=== PATIENT | male | born 1960 | race African-American/Black ===

== ENCOUNTER 2018-07-12 18:36 | Inpatient (IN) | payer SELFPAY ==
[~2018-07-12] VITALS: Ht 172.7 cm; Wt 87.1 kg
[~2018-07-12 18:36] MED LIST: ASPI-1159 PO; ATOR40TA70 PO; CLOP75TA33 PO; FAMO40TA7 PO; FURO40TA5 PO; LISI10TA5 PO; METF-414 PO; METO-539 PO
[2018-07-12] MEDS ORDERED: FUROSEMIDE 40MG/4ML VIAL IV ONE (21:00)
[2018-07-12] MEDS ORDERED: ASPIRIN 81MG TABLET PO ONE (21:00)
[2018-07-12 21:06] LABS: BASOPHILS % 0.4 % (0.0-2.0); EOSINOPHILS % 1.1 % (0.0-5.0); HEMATOCRIT. 40.7 % (42.0-52.0); HEMOGLOBIN. 13.5 g/dL (14.0-18.0); LYMPHOCYTES % 10.5 % (20.0-50.0); MEAN CORPUSCULAR HEMOGLOBIN 27.8 pg (28.0-32.0); MEAN CORPUSCULAR VOLUME 83.8 fL (80.0-94.0); MEAN PLATELET VOLUME 10.2 fl (7.4-10.4); MONOCYTES % 7.3 % (2.0-8.0); NEUTROPHILS % 80.7 % (40.0-76.0); PLATELET 189 x1000/uL (130-400); RED BLOOD CELL COUNT 4.85 mill/uL (4.7-6.1); RED CELL DISTRIBUTION WIDTH 15.8 % (11.6-14.6)
[2018-07-12 21:10] LABS: INR 1.3; PARTIAL THROMBOPLASTIN TIME 30.1 sec (23.4-31.0)
[2018-07-12 21:11] LABS: CHLORIDE 101 mEq/L (98-107); ETHANOL BLOOD < 10 mg/dL
[2018-07-12 23:15] LABS: *AMPHETAMINES SCREEN URINE NEGATIVE (NEGATIVE); *BARBITURATES SCREEN URINE NEGATIVE (NEGATIVE); *BENZODIAZEPINES SCREEN URINE NEGATIVE (NEGATIVE); *COCAINE SCREEN URINE NEGATIVE (NEGATIVE); CANNABINOID URINE SCREEN NEGATIVE (NEGATIVE); METHADONE URINE SCREEN NEGATIVE (NEGATIVE); OPIATES URINE SCREEN NEGATIVE (NEGATIVE); PHENCYCLIDINE URINE SCREEN NEGATIVE (NEGATIVE)
[2018-07-13 00:35] VITALS: BP 155/111
[2018-07-13] MEDS ORDERED: DEXTROSE 50% WATER 50ML SYRINGE IV PRN (01:45)
[2018-07-13 04:22] VITALS: BP 167/106
[2018-07-13] MEDS: BLOOD SUGAR DIAGNOSTIC STRIP TEST SCH ×4 (07:20→20:51)
[2018-07-13] MEDS: INSULIN LISPRO 100 UNITS/ML SUBCUT SCH ×4 (07:50→21:00)
[2018-07-13] MEDS ORDERED: CLONIDINE 0.1MG TABLET PO PRN (08:00)
[2018-07-13] MEDS ORDERED: FUROSEMIDE 100MG/10ML VIAL IVP SCH (08:20)
[2018-07-13] MEDS: METFORMIN HCL 500MG TABLET PO SCH (08:28)
[2018-07-13] MEDS: AMLODIPINE 5MG TABLET PO SCH ×2 (08:29→20:49)
[2018-07-13] MEDS: FAMOTIDINE 20MG TABLET PO SCH ×2 (08:32→20:46)
[2018-07-13 08:49] VITALS: BP 138/98
[2018-07-13] MEDS ORDERED: METOPROLOL TARTRATE 50MG TABLET PO SCH (09:00)
[2018-07-13] MEDS ORDERED: FUROSEMIDE 20MG/2ML VIAL IVP SCH (09:00)
[2018-07-13] MEDS ORDERED: ASPIRIN 81MG TABLET PO SCH (09:00)
[2018-07-13] MEDS ORDERED: CLOPIDOGREL 75MG TABLET PO SCH (09:00)
[2018-07-13] MEDS: CARVEDILOL 12.5MG TABLET PO SCH ×2 (09:08→20:50)
[2018-07-13] MEDS ORDERED: INFLUENZA VIRUS VACCINE(AFLURIA) 0.5ML SYR IM ONE (10:00)
[2018-07-13 10:20] LABS: HEMATOCRIT 41.3 % (42.0-52.0); HEMOGLOBIN 13.8 g/dL (14.0-18.0); MEAN CORPUSCULAR VOLUME 84.1 fL (80.0-94.0); PLATELET 177 x1000/uL (130-400); RED BLOOD CELL COUNT 4.92 mill/uL (4.7-6.1); RED CELL DISTRIBUTION WIDTH 15.7 % (11.6-14.6)
[2018-07-13 10:46] LABS: CHLORIDE 101 mEq/L (98-107)
[2018-07-13] MEDS: TAMSULOSIN HCL 0.4MG SR CAPSULE PO SCH (11:30)
[2018-07-13 12:00] VITALS: BP 108/75
[2018-07-13] MEDS: LISINOPRIL 20MG TABLET PO SCH ×2 (12:00→20:49)
[2018-07-13] MEDS ORDERED: LORAZEPAM 2MG/ML CPJ IV PRN (15:00)
[2018-07-13] MEDS: THIAMINE HCL 100MG TABLET PO SCH (15:00)
[2018-07-13] MEDS ORDERED: IPRATROPIUM/ALBUTEROL 0.5-3(2.5)MG/3ML NEB HHN PRN (15:00)
[2018-07-13] MEDS ORDERED: GUAIFENESIN/CODEINE 200-20MG/10ML UDC PO PRN (15:00)
[2018-07-13 16:29] VITALS: BP 101/68
[2018-07-13] MEDS: MULTIVITAMINS,THER W-MINERALS TABLET PO SCH (17:03)
[2018-07-13] MEDS: FOLIC ACID 1MG TABLET PO SCH (17:03)
[2018-07-13] MEDS: FUROSEMIDE 40MG/4ML VIAL IVP SCH (17:03)
[2018-07-13] MEDS: ENOXAPARIN 40MG/0.4ML SYR SUBCUT SCH (17:05)
[2018-07-13 20:00] VITALS: BP 123/84
[2018-07-13] MEDS: ATORVASTATIN CALCIUM 40MG TABLET PO SCH (20:46)
[2018-07-13] MEDS ORDERED: HYDROCODONE/ACETAMINOPHEN 5/325MG TABLET PO PRN (21:45)
[2018-07-14] VITALS: BP 101/59
[2018-07-14 04:00] VITALS: BP 112/64
[2018-07-14] MEDS: FUROSEMIDE 40MG/4ML VIAL IVP SCH ×2 (06:16→18:24)
[2018-07-14] MEDS: BLOOD SUGAR DIAGNOSTIC STRIP TEST SCH ×4 (06:23→21:00)
[2018-07-14] MEDS: INSULIN LISPRO 100 UNITS/ML SUBCUT SCH ×4 (07:18→22:24)
[2018-07-14 07:34] LABS: BASOPHILS % 0.3 % (0.0-2.0); EOSINOPHILS % 2.5 % (0.0-5.0); HEMATOCRIT. 38.7 % (42.0-52.0); LYMPHOCYTES % 11.9 % (20.0-50.0); MEAN CORPUSCULAR HEMOGLOBIN 28.1 pg (28.0-32.0); MEAN CORPUSCULAR VOLUME 83.5 fL (80.0-94.0); MEAN PLATELET VOLUME 9.8 fl (7.4-10.4); NEUTROPHILS % 77.3 % (40.0-76.0); PLATELET 169 x1000/uL (130-400); RED BLOOD CELL COUNT 4.64 mill/uL (4.7-6.1); RED CELL DISTRIBUTION WIDTH 15.7 % (11.6-14.6)
[2018-07-14 08:00] VITALS: BP 127/76
[2018-07-14 08:05] LABS: CHLORIDE 102 mEq/L (98-107)
[2018-07-14 08:17] LABS: HDL CHOLESTEROL 25 mg/dL (40-59); LDL CHOLESTEROL 44 mg/dL (5-100)
[2018-07-14] MEDS: THIAMINE HCL 100MG TABLET PO SCH (08:40)
[2018-07-14] MEDS: CARVEDILOL 12.5MG TABLET PO SCH ×2 (08:41→22:25)
[2018-07-14] MEDS: TAMSULOSIN HCL 0.4MG SR CAPSULE PO SCH (08:41)
[2018-07-14] MEDS: LISINOPRIL 20MG TABLET PO SCH ×2 (08:42→22:25)
[2018-07-14] MEDS: MULTIVITAMINS,THER W-MINERALS TABLET PO SCH (08:42)
[2018-07-14] MEDS: FOLIC ACID 1MG TABLET PO SCH (08:42)
[2018-07-14] MEDS: METFORMIN HCL 500MG TABLET PO SCH (08:42)
[2018-07-14] MEDS: AMLODIPINE 5MG TABLET PO SCH ×2 (08:42→22:25)
[2018-07-14] MEDS: FAMOTIDINE 20MG TABLET PO SCH ×2 (08:55→22:24)
[2018-07-14 12:00] VITALS: BP 114/63
[2018-07-14] MEDS ORDERED: FUROSEMIDE 40MG/4ML VIAL IVP NR (14:49)
[2018-07-14] MEDS ORDERED: POTASSIUM CHLORIDE 20MEQ/PACKET PO NR (14:50)
[2018-07-14 16:00] VITALS: BP 122/78
[2018-07-14] MEDS ORDERED: MAGNESIUM SULFATE 2 GM in DEXTROSE 5% WATER 50 ML IV NR (17:00)
[2018-07-14] MEDS: POTASSIUM CHLORIDE 20MEQ TABLET SR PO SCH (18:24)
[2018-07-14] MEDS: ENOXAPARIN 40MG/0.4ML SYR SUBCUT SCH (18:25)
[2018-07-14 20:00] VITALS: BP 119/90
[2018-07-14] MEDS: ATORVASTATIN CALCIUM 40MG TABLET PO SCH (22:24)
[2018-07-15] VITALS: BP 123/76
[2018-07-15 04:00] VITALS: BP 105/61
[2018-07-15 06:54] LABS: BASOPHILS % 0.7 % (0.0-2.0); EOSINOPHILS % 2.5 % (0.0-5.0); HEMATOCRIT. 40.3 % (42.0-52.0); HEMOGLOBIN. 13.4 g/dL (14.0-18.0); LYMPHOCYTES % 15.8 % (20.0-50.0); MEAN CORPUSCULAR HEMOGLOBIN 27.7 pg (28.0-32.0); MEAN CORPUSCULAR VOLUME 83.4 fL (80.0-94.0); MEAN PLATELET VOLUME 10.1 fl (7.4-10.4); MONOCYTES % 8.5 % (2.0-8.0); NEUTROPHILS % 72.5 % (40.0-76.0); PLATELET 184 x1000/uL (130-400); RED BLOOD CELL COUNT 4.83 mill/uL (4.7-6.1); RED CELL DISTRIBUTION WIDTH 15.8 % (11.6-14.6)
[2018-07-15] MEDS: BLOOD SUGAR DIAGNOSTIC STRIP TEST SCH ×4 (07:16→21:25)
[2018-07-15] MEDS: INSULIN LISPRO 100 UNITS/ML SUBCUT SCH ×4 (07:50→21:25)
[2018-07-15 07:53] LABS: CHLORIDE 100 mEq/L (98-107)
[2018-07-15 08:00] VITALS: BP 126/80
[2018-07-15] MEDS: POTASSIUM CHLORIDE 20MEQ TABLET SR PO SCH ×2 (09:22→17:59)
[2018-07-15] MEDS: TAMSULOSIN HCL 0.4MG SR CAPSULE PO SCH (09:22)
[2018-07-15] MEDS: FAMOTIDINE 20MG TABLET PO SCH ×2 (09:22→21:22)
[2018-07-15] MEDS: AMLODIPINE 5MG TABLET PO SCH ×2 (09:22→21:00)
[2018-07-15] MEDS: METFORMIN HCL 500MG TABLET PO SCH (09:22)
[2018-07-15] MEDS: MULTIVITAMINS,THER W-MINERALS TABLET PO SCH (09:22)
[2018-07-15] MEDS: FOLIC ACID 1MG TABLET PO SCH (09:23)
[2018-07-15] MEDS: LISINOPRIL 20MG TABLET PO SCH ×2 (09:23→21:00)
[2018-07-15] MEDS: FUROSEMIDE 40MG/4ML VIAL IVP SCH ×2 (09:23→17:59)
[2018-07-15] MEDS: THIAMINE HCL 100MG TABLET PO SCH (09:23)
[2018-07-15 12:00] VITALS: BP 128/91
[2018-07-15 16:00] VITALS: BP 146/82
[2018-07-15] MEDS: ENOXAPARIN 40MG/0.4ML SYR SUBCUT SCH (16:15)
[2018-07-15] MEDS: CARVEDILOL 12.5MG TABLET PO SCH ×2 (17:59→21:00)
[2018-07-15 20:00] VITALS: BP 103/61
[2018-07-15] MEDS: ATORVASTATIN CALCIUM 40MG TABLET PO SCH (21:22)
[2018-07-16] VITALS: BP 110/63
[2018-07-16 04:00] VITALS: BP 105/77
[2018-07-16] MEDS: BLOOD SUGAR DIAGNOSTIC STRIP TEST SCH (06:25)
[2018-07-16 06:36] LABS: BASOPHILS % 0.8 % (0.0-2.0); EOSINOPHILS % 3.5 % (0.0-5.0); HEMATOCRIT. 41.5 % (42.0-52.0); HEMOGLOBIN. 13.6 g/dL (14.0-18.0); MEAN CORPUSCULAR HEMOGLOBIN 27.6 pg (28.0-32.0); MEAN CORPUSCULAR VOLUME 83.9 fL (80.0-94.0); MEAN PLATELET VOLUME 10.1 fl (7.4-10.4); MONOCYTES % 8.9 % (2.0-8.0); NEUTROPHILS % 70.8 % (40.0-76.0); PLATELET 188 x1000/uL (130-400); RED BLOOD CELL COUNT 4.95 mill/uL (4.7-6.1); RED CELL DISTRIBUTION WIDTH 15.4 % (11.6-14.6)
[2018-07-16 07:06] LABS: CHLORIDE 102 mEq/L (98-107)
[2018-07-16] MEDS ORDERED: SODIUM BICARBONATE 4% (2.4MEQ) 5ML VIAL IV ONE (08:06)
[2018-07-16] MEDS: METFORMIN HCL 500MG TABLET PO SCH (10:20)
[2018-07-16] MEDS: FAMOTIDINE 20MG TABLET PO SCH (10:20)
[2018-07-16] MEDS: CARVEDILOL 12.5MG TABLET PO SCH (10:21)
[2018-07-16] MEDS: TAMSULOSIN HCL 0.4MG SR CAPSULE PO SCH (10:21)
[2018-07-16] MEDS: THIAMINE HCL 100MG TABLET PO SCH (10:21)
[2018-07-16] MEDS: AMLODIPINE 5MG TABLET PO SCH (10:21)
[2018-07-16] MEDS: MULTIVITAMINS,THER W-MINERALS TABLET PO SCH (10:21)
[2018-07-16] MEDS: POTASSIUM CHLORIDE 20MEQ TABLET SR PO SCH (10:21)
[2018-07-16] MEDS: FOLIC ACID 1MG TABLET PO SCH (10:21)
[2018-07-16] MEDS: FUROSEMIDE 40MG/4ML VIAL IVP SCH (10:22)
[2018-07-16] MEDS: LISINOPRIL 20MG TABLET PO SCH (10:22)
[2018-07-16 11:14] VITALS: BP 146/80
== END 2018-07-16 12:09 | disposition home or self-care (01) | DRG 133 ==
LOC: ER 18:36 → 6WST 21:54 → EDBEDREQ 21:56 → EDBEDREQTM 21:56 → EDBEDREQSVC 22:53 → ENRESERV 22:58
PROVIDERS: ADMIT Internal Medicine; ATTEND Internal Medicine
PROC: 0W993ZZ Drainage of Right Pleural Cavity, Percutaneous Approach (ICD-10-PCS; principal; 2018-07-16)
DX: J96.00 Acute respiratory failure, unspecified whether with hypoxia or hypercapnia (principal); I50.43 Acute on chronic combined systolic (congestive) and diastolic (congestive) heart failure; I27.20 Pulmonary hypertension, unspecified; E87.8 Other disorders of electrolyte and fluid balance, not elsewhere classified; E44.1 Mild protein-calorie malnutrition; I31.3 Pericardial effusion (noninflammatory); I11.0 Hypertensive heart disease with heart failure; B35.1 Tinea unguium; I42.9 Cardiomyopathy, unspecified; D64.9 Anemia, unspecified; E78.00 Pure hypercholesterolemia, unspecified; E11.9 Type 2 diabetes mellitus without complications; E78.5 Hyperlipidemia, unspecified; E87.6 Hypokalemia; F10.10 Alcohol abuse, uncomplicated; I25.10 Atherosclerotic heart disease of native coronary artery without angina pectoris; N40.0 Benign prostatic hyperplasia without lower urinary tract symptoms; R18.8 Other ascites; Z79.02 Long term (current) use of antithrombotics/antiplatelets; Z79.82 Long term (current) use of aspirin; Z82.49 Family history of ischemic heart disease and other diseases of the circulatory system; Z83.3 Family history of diabetes mellitus; Z87.891 Personal history of nicotine dependence; Z95.5 Presence of coronary angioplasty implant and graft; Z95.810 Presence of automatic (implantable) cardiac defibrillator; Z79.84 Long term (current) use of oral hypoglycemic drugs; Z68.29 Body mass index [BMI] 29.0-29.9, adult
CPT/HCPCS: 32555; 36415; 71045; 71250; 80048; 80061; 80305; 82962; 83036; 83735; 83880; 84484; 85027; 85379; 90686; 93005; 93306; 93970; 99285; G0482; J1650; J1815; J1940; J3475; J3490; J7040; J7060

== ENCOUNTER 2018-08-07 17:23 | Inpatient (IN) | payer SELFPAY ==
[~2018-08-07] VITALS: Ht 172.7 cm; Wt 85.0 kg
[~2018-08-07 17:23] MED LIST changes: -CLOP75TA33 PO; -FURO40TA5 PO; -LISI10TA5 PO; -METF-414 PO; -METO-539 PO
[2018-08-07] MEDS ORDERED: ASPIRIN 81MG TABLET PO ONE (23:00)
[2018-08-07 23:37] LABS: BASOPHILS % 0.5 % (0.0-2.0); EOSINOPHILS % 1.6 % (0.0-5.0); HEMATOCRIT. 37.1 % (42.0-52.0); HEMOGLOBIN. 12.4 g/dL (14.0-18.0); LYMPHOCYTES % 17.9 % (20.0-50.0); MEAN CORPUSCULAR HEMOGLOBIN 27.7 pg (28.0-32.0); MEAN CORPUSCULAR VOLUME 82.9 fL (80.0-94.0); MEAN PLATELET VOLUME 9.8 fl (7.4-10.4); MONOCYTES % 5.9 % (2.0-8.0); NEUTROPHILS % 74.1 % (40.0-76.0); PLATELET 166 x1000/uL (130-400); RED BLOOD CELL COUNT 4.47 mill/uL (4.7-6.1); RED CELL DISTRIBUTION WIDTH 15.5 % (11.6-14.6)
[2018-08-07 23:43] LABS: CHLORIDE 102 mEq/L (98-107)
[2018-08-08 05:30] VITALS: BP 151/97
[2018-08-08 08:00] VITALS: BP 142/92
[2018-08-08] MEDS ORDERED: DEXTROSE 50% WATER 50ML SYRINGE IV PRN (08:15)
[2018-08-08] MEDS ORDERED: IPRATROPIUM/ALBUTEROL 0.5-3(2.5)MG/3ML NEB HHN PRN (08:45)
[2018-08-08] MEDS ORDERED: LORAZEPAM 2MG/ML CPJ IV PRN (08:45)
[2018-08-08] MEDS ORDERED: IPRATROPIUM/ALBUTEROL 0.5-3(2.5)MG/3ML NEB INH PRN (09:00)
[2018-08-08] MEDS ORDERED: ACETAMINOPHEN 325MG TABLET PO PRN (09:00)
[2018-08-08] MEDS ORDERED: ONDANSETRON HCL 4MG/2ML INJ IV PRN (09:00)
[2018-08-08] MEDS ORDERED: CLONIDINE 0.1MG TABLET PO PRN (09:00)
[2018-08-08] MEDS: FUROSEMIDE 40MG/4ML VIAL IV SCH ×2 (10:05→17:18)
[2018-08-08] MEDS: MULTIVITAMINS,THER W-MINERALS TABLET PO SCH (10:05)
[2018-08-08] MEDS: THIAMINE HCL 100MG TABLET PO SCH (10:05)
[2018-08-08 12:00] VITALS: BP 128/88
[2018-08-08] MEDS: BLOOD SUGAR DIAGNOSTIC STRIP TEST SCH ×3 (12:28→21:00)
[2018-08-08] MEDS: LOSARTAN POTASSIUM 50 MG TABLET PO SCH (13:04)
[2018-08-08] MEDS: POTASSIUM CHLORIDE 20MEQ TABLET SR PO SCH (13:05)
[2018-08-08] MEDS: SPIRONOLACTONE 25MG TABLET PO SCH (13:05)
[2018-08-08] MEDS: INSULIN LISPRO 100 UNITS/ML SUBCUT SCH ×3 (13:06→21:00)
[2018-08-08 16:00] VITALS: BP 136/80
[2018-08-08] MEDS: IPRATROPIUM/ALBUTEROL 0.5-3(2.5)MG/3ML NEB HHN SCH ×2 (16:19→20:53)
[2018-08-08 20:00] VITALS: BP 144/94
[2018-08-08] MEDS: ATORVASTATIN CALCIUM 40MG TABLET PO SCH (21:49)
[2018-08-08] MEDS: CARVEDILOL 6.25 MG TABLET PO SCH (21:49)
[2018-08-08] MEDS: TAMSULOSIN HCL 0.4MG SR CAPSULE PO SCH (21:49)
[2018-08-09] VITALS: BP 129/86
[2018-08-09] MEDS: IPRATROPIUM/ALBUTEROL 0.5-3(2.5)MG/3ML NEB HHN SCH ×4 (01:26→19:59)
[2018-08-09 04:00] VITALS: BP 134/87
[2018-08-09] MEDS: BLOOD SUGAR DIAGNOSTIC STRIP TEST SCH ×4 (06:38→20:55)
[2018-08-09 06:51] LABS: BASOPHILS % 0.5 % (0.0-2.0); HEMATOCRIT. 34.8 % (42.0-52.0); HEMOGLOBIN. 11.7 g/dL (14.0-18.0); LYMPHOCYTES % 15.4 % (20.0-50.0); MEAN CORPUSCULAR HEMOGLOBIN 27.9 pg (28.0-32.0); MEAN CORPUSCULAR VOLUME 83.2 fL (80.0-94.0); MEAN PLATELET VOLUME 9.9 fl (7.4-10.4); MONOCYTES % 7.1 % (2.0-8.0); PLATELET 151 x1000/uL (130-400); RED BLOOD CELL COUNT 4.18 mill/uL (4.7-6.1); RED CELL DISTRIBUTION WIDTH 15.4 % (11.6-14.6)
[2018-08-09 07:15] LABS: CHLORIDE 101 mEq/L (98-107)
[2018-08-09 07:27] LABS: C REACTIVE PROTEIN QUANT 7.8 mg/L (0.0-3.0)
[2018-08-09 07:28] LABS: LDL CHOLESTEROL 50 mg/dL (5-100)
[2018-08-09 07:30] LABS: HDL CHOLESTEROL 30 mg/dL (40-59)
[2018-08-09] MEDS: INSULIN LISPRO 100 UNITS/ML SUBCUT SCH ×4 (07:33→20:55)
[2018-08-09 08:00] VITALS: BP 161/104
[2018-08-09] MEDS: FUROSEMIDE 40MG/4ML VIAL IV SCH ×2 (09:01→18:43)
[2018-08-09] MEDS: MULTIVITAMINS,THER W-MINERALS TABLET PO SCH (09:02)
[2018-08-09] MEDS: THIAMINE HCL 100MG TABLET PO SCH (09:02)
[2018-08-09] MEDS: POTASSIUM CHLORIDE 20MEQ TABLET SR PO SCH (09:02)
[2018-08-09] MEDS: SPIRONOLACTONE 25MG TABLET PO SCH (09:02)
[2018-08-09] MEDS: TAMSULOSIN HCL 0.4MG SR CAPSULE PO SCH (09:02)
[2018-08-09] MEDS: CARVEDILOL 6.25 MG TABLET PO SCH ×2 (09:03→20:56)
[2018-08-09] MEDS: LOSARTAN POTASSIUM 50 MG TABLET PO SCH (09:03)
[2018-08-09] MEDS ORDERED: FUROSEMIDE 40MG/4ML VIAL IVP NR (10:37)
[2018-08-09 12:00] VITALS: BP 131/75
[2018-08-09 16:00] VITALS: BP 138/80
[2018-08-09] MEDS ORDERED: SIMETHICONE 80MG TABLET CHEW PO PRN (18:00)
[2018-08-09 20:01] VITALS: BP 153/101
[2018-08-09] MEDS: ATORVASTATIN CALCIUM 40MG TABLET PO SCH (20:55)
[2018-08-10] VITALS: BP 130/89
[2018-08-10] MEDS: IPRATROPIUM/ALBUTEROL 0.5-3(2.5)MG/3ML NEB HHN SCH ×2 (00:47→07:18)
[2018-08-10 01:14] LABS: CLARITY URINE CLEAR (CLEAR); COLOR URINE YELLOW (YELLOW); KETONES URINE NEGATIVE (NEGATIVE); LEUKOCYTE ESTERASE URINE NEGATIVE (NEGATIVE); NITRITE URINE NEGATIVE (NEGATIVE); OCCULT BLOOD URINE NEGATIVE (NEGATIVE); PH URINE 6.5 (4.5-8.0); PROTEIN URINE NEGATIVE (NEGATIVE); SPECIFIC GRAVITY URINE 1.007 (1.005-1.030)
[2018-08-10 01:29] LABS: *AMPHETAMINES SCREEN URINE NEGATIVE (NEGATIVE); *BARBITURATES SCREEN URINE NEGATIVE (NEGATIVE); *BENZODIAZEPINES SCREEN URINE NEGATIVE (NEGATIVE); *COCAINE SCREEN URINE NEGATIVE (NEGATIVE); CANNABINOID URINE SCREEN NEGATIVE (NEGATIVE); METHADONE URINE SCREEN NEGATIVE (NEGATIVE); OPIATES URINE SCREEN NEGATIVE (NEGATIVE); PHENCYCLIDINE URINE SCREEN NEGATIVE (NEGATIVE)
[2018-08-10 04:00] VITALS: BP 128/84
[2018-08-10] MEDS: FUROSEMIDE 40MG/4ML VIAL IV SCH (06:16)
[2018-08-10] MEDS: BLOOD SUGAR DIAGNOSTIC STRIP TEST SCH ×2 (06:20→11:32)
[2018-08-10 06:38] LABS: BASOPHILS % 0.5 % (0.0-2.0); EOSINOPHILS % 3.5 % (0.0-5.0); HEMATOCRIT. 37.9 % (42.0-52.0); HEMOGLOBIN. 12.5 g/dL (14.0-18.0); LYMPHOCYTES % 15.9 % (20.0-50.0); MEAN CORPUSCULAR HEMOGLOBIN 27.5 pg (28.0-32.0); MEAN CORPUSCULAR VOLUME 83.2 fL (80.0-94.0); MEAN PLATELET VOLUME 9.8 fl (7.4-10.4); MONOCYTES % 7.4 % (2.0-8.0); NEUTROPHILS % 72.7 % (40.0-76.0); PLATELET 172 x1000/uL (130-400); RED BLOOD CELL COUNT 4.55 mill/uL (4.7-6.1); RED CELL DISTRIBUTION WIDTH 15.7 % (11.6-14.6)
[2018-08-10 06:55] LABS: CHLORIDE 99 mEq/L (98-107)
[2018-08-10] MEDS: INSULIN LISPRO 100 UNITS/ML SUBCUT SCH ×2 (07:36→11:32)
[2018-08-10 08:07] VITALS: BP 128/85
[2018-08-10] MEDS: SPIRONOLACTONE 25MG TABLET PO SCH (08:53)
[2018-08-10] MEDS: LOSARTAN POTASSIUM 50 MG TABLET PO SCH (08:53)
[2018-08-10] MEDS: CARVEDILOL 6.25 MG TABLET PO SCH (08:53)
[2018-08-10] MEDS: MULTIVITAMINS,THER W-MINERALS TABLET PO SCH (08:54)
[2018-08-10] MEDS: TAMSULOSIN HCL 0.4MG SR CAPSULE PO SCH (08:54)
[2018-08-10] MEDS: POTASSIUM CHLORIDE 20MEQ TABLET SR PO SCH (08:55)
[2018-08-10] MEDS: THIAMINE HCL 100MG TABLET PO SCH (08:55)
[2018-08-10 12:07] VITALS: BP 113/78
[2018-08-10] MEDS ORDERED: FURO40TA5 MT (12:29)
[2018-08-10] MEDS ORDERED: LOSA50TA3 PO (12:29)
[2018-08-10] MEDS ORDERED: POTA20TA82 PO (12:29)
[2018-08-10] MEDS ORDERED: METF-414 MT (12:29)
[2018-08-10] MEDS ORDERED: SPIR25TA PO (12:29)
[2018-08-10] MEDS ORDERED: COR6 PO (12:29)
[2018-08-10] MEDS ORDERED: THIA100T72 PO (12:29)
[2018-08-10] MEDS ORDERED: TAMS-11 PO (12:29)
[2018-08-10 15:03] VITALS: BP 113/78
[2018-08-10 16:03] VITALS: BP 125/87
== END 2018-08-10 18:00 | disposition home or self-care (01) | DRG 133 ==
LOC: ER 17:23 → 6WST 08-08 00:54 → ENRESERV 08-08 03:58
PROVIDERS: ADMIT Internal Medicine; ATTEND Internal Medicine
DX: J96.00 Acute respiratory failure, unspecified whether with hypoxia or hypercapnia (principal); I50.43 Acute on chronic combined systolic (congestive) and diastolic (congestive) heart failure; I27.20 Pulmonary hypertension, unspecified; E44.1 Mild protein-calorie malnutrition; J44.9 Chronic obstructive pulmonary disease, unspecified; D64.9 Anemia, unspecified; E11.9 Type 2 diabetes mellitus without complications; E78.00 Pure hypercholesterolemia, unspecified; E78.5 Hyperlipidemia, unspecified; I11.0 Hypertensive heart disease with heart failure; I45.10 Unspecified right bundle-branch block; R10.9 Unspecified abdominal pain; F10.10 Alcohol abuse, uncomplicated; I25.10 Atherosclerotic heart disease of native coronary artery without angina pectoris; I25.5 Ischemic cardiomyopathy; N40.0 Benign prostatic hyperplasia without lower urinary tract symptoms; Z79.02 Long term (current) use of antithrombotics/antiplatelets; Z79.82 Long term (current) use of aspirin; Z79.84 Long term (current) use of oral hypoglycemic drugs; Z82.49 Family history of ischemic heart disease and other diseases of the circulatory system; Z83.3 Family history of diabetes mellitus; Z87.891 Personal history of nicotine dependence; Z95.5 Presence of coronary angioplasty implant and graft; Z95.810 Presence of automatic (implantable) cardiac defibrillator; Z68.28 Body mass index [BMI] 28.0-28.9, adult; Z79.899 Other long term (current) drug therapy
CPT/HCPCS: 36415; 71045; 76700; 80048; 80061; 80305; 82962; 83036; 83735; 83880; 84484; 85651; 86140; 93005; 94640; 99285; J1815; J1940; J7620